=== PATIENT | male | born 1965 | race Caucasian/White ===

== ENCOUNTER → 2018-06-09 | Outpatient (REF) | payer BC ==
[2018-06-09 15:54] LABS: INFLUENZA A AMPLIFICATION POSITIVE (NEGATIVE); INFLUENZA B AMPLIFICATION NEGATIVE (NEGATIVE)
== END ==
LOC: M LAB REF 15:09
PROVIDERS: ATTEND Physician Assistant
DX: J11.1 Influenza due to unidentified influenza virus with other respiratory manifestations (principal)

== ENCOUNTER → 2021-09-23 | Outpatient (CLI) | payer BC, OTHER ==
[~2021-09-23] MED LIST: LOSA50TA5 PO; OMEP-173 PO; PRAV40TA2 PO; TRAZ-252 PO
== END ==
LOC: M LABSMTC 09:54
PROVIDERS: ATTEND Anesthesiology
DX: Z01.818 Encounter for other preprocedural examination (principal); Z11.52 Encounter for screening for COVID-19

== ENCOUNTER 2021-09-28 07:10 | Day surgery (SDC) | payer OTHER ==
[~2021-09-28] VITALS: Ht 177.8 cm; Wt 82.9 kg
[~2021-09-28 07:10] MED LIST changes: +NS 1,000 ML IV ONE
[2021-09-28] MEDS ORDERED: propofoL 500 MG/50 ML VIAL As Ordered ONE (07:39)
[2021-09-28] MEDS ORDERED: LIDOCAINE 2% 100MG/5ML SDV (FOR ANES.) As Ordered ONE (07:39)
[2021-09-28 08:19] VITALS: BP 120/78
== END 2021-09-28 08:24 | disposition home or self-care (01) ==
LOC: M OPP 07:10
PROVIDERS: ATTEND Surgery
DX: Z12.11 Encounter for screening for malignant neoplasm of colon (principal); D12.0 Benign neoplasm of cecum; K64.1 Second degree hemorrhoids; I10 Essential (primary) hypertension; K21.9 Gastro-esophageal reflux disease without esophagitis; M19.90 Unspecified osteoarthritis, unspecified site; Z88.1 Allergy status to other antibiotic agents; Z79.899 Other long term (current) drug therapy; Z82.49 Family history of ischemic heart disease and other diseases of the circulatory system